=== PATIENT | female | born 1990 | race African-American/Black ===

== ENCOUNTER 2017-05-04 17:51 | Emergency (ER) | payer MEDICAID ==
[~2017-05-04] VITALS: Ht 165.1 cm; Wt 99.3 kg
[2017-05-04 18:06] VITALS: BP_SYST 132
[2017-05-04 19:06] LABS: BILIRUBIN,URINE NEGATIVE (NEGATIVE); BLOOD, URINE 3+ (NEGATIVE); CLARITY/URINE HAZY (CLEAR); COLOR,URINE YELLOW (YELLOW); GLUCOSE,URINE NEGATIVE (NEGATIVE); KETONES,URINE TRACE (NEGATIVE); LEUKOCYTE ESTERASE ,URINE NEGATIVE (NEGATIVE); NITRITE, URINE NEGATIVE (NEGATIVE); PH,URINE 6.5 (5.0-8.0); PROTEIN URINE TRACE (NEGATIVE); UROBILINOGEN,URINE 0.2 (0.2-1.0)
[2017-05-04 19:11] LABS: BACTERIA,URINE FEW /HPF (None Seen)
[2017-05-04 19:12] LABS: MUCUS,URINE 2+ /LPF (None Seen)
[2017-05-04] MEDS ORDERED: KETOROLAC TROMETHAMINE 60 MG/2 ML VIAL IM ONE (19:15)
[2017-05-04 20:45] VITALS: BP_SYST 130
== END 2017-05-04 20:45 | disposition home or self-care (01) ==
LOC: SED 17:51
DX: N76.0 Acute vaginitis (principal); N39.0 Urinary tract infection, site not specified
CPT/HCPCS: 81000; 81025; 87205; 87210; 87491; 87591; 96372; 99284; J1885

== ENCOUNTER 2018-08-05 18:20 | Emergency (ER) | payer MEDICAID ==
[~2018-08-05] VITALS: Ht 160 cm; Wt 104.3 kg
[2018-08-05 18:26] VITALS: BP_SYST 122
== END 2018-08-05 19:00 | disposition home or self-care (01) ==
LOC: SED 18:20
DX: B35.9 Dermatophytosis, unspecified (principal)
CPT/HCPCS: 99282

== ENCOUNTER 2018-08-16 20:06 | Emergency (ER) | payer MEDICAID ==
[~2018-08-16] VITALS: Ht 154.9 cm; Wt 104.3 kg
[2018-08-16 20:14] VITALS: BP_SYST 124
--- NOTE | 2018-08-16 20:17 | NUR ---
Patient to ER bed 08 to gown for evaluation. Side rails up.
--- NOTE | 2018-08-16 20:20 | NUR ---
Pt complains of having "ring worms" on bilateral upper and lower extremities, that burn and itch. Pt states she has had this for about 2 months. Pt was seen here and was given ointment, but they have not gone away. Pt denies N/V, or fever. No other injuries/complaints per patient or noted.
--- NOTE | 2018-08-16 20:30 | NUR ---
ER Dr. De La Paz at bedside examining patient.
[2018-08-16 20:45] VITALS: BP_SYST 122
--- NOTE | 2018-08-16 20:45 | NUR ---
Patient given written and verbal discharge instructions and verbalizes understanding. ER MD discussed with patient the results and treatment provided. Patient in stable condition. ID arm band removed. Rx of AUGMENTIN OINT given. Patient educated on pain management and to follow up with PMD. Pain Scale 0/10. Opportunity for questions provided and answered. Medication side effect fact sheet provided.
== END 2018-08-16 20:45 | disposition home or self-care (01) ==
LOC: SED 20:06
DX: L23.9 Allergic contact dermatitis, unspecified cause (principal); R03.0 Elevated blood-pressure reading, without diagnosis of hypertension
CPT/HCPCS: 99283

== ENCOUNTER 2018-11-16 16:11 | Emergency (ER) | payer MEDICAID ==
[~2018-11-16] VITALS: Ht 154.9 cm; Wt 103.9 kg
[2018-11-16 16:21] VITALS: BP_SYST 116
[2018-11-16 17:15] VITALS: BP_SYST 116
== END 2018-11-16 17:15 | disposition home or self-care (01) ==
LOC: SED 16:11
DX: N89.8 Other specified noninflammatory disorders of vagina (principal)
CPT/HCPCS: 99283

== ENCOUNTER 2019-05-07 16:03 | Emergency (ER) | payer MEDICAID ==
[~2019-05-07] VITALS: Ht 157.5 cm; Wt 100.7 kg
[2019-05-07 16:10] VITALS: BP_SYST 113
[2019-05-07 17:10] LABS: BASOPHILS % (AUTO) 0.4 % (0.0-2.0); EOSINOPHILS # (AUTO) 0.1 K/uL (0.0-0.4); EOSINOPHILS % (AUTO) 0.8 % (0.0-4.0); HEMATOCRIT 38.5 % (36-48); HEMOGLOBIN 12.9 g/dL (12.0-16.0); LYMPHOCYTES # (AUTO) 2.1 K/uL (1.0-5.5); LYMPHOCYTES % (AUTO) 25.1 % (20.5-51.5); MEAN CORPUSCULAR HEMOGLOBIN 32 pg (27-31); MEAN CORPUSCULAR HGB CONC 34 % (32-36); MEAN CORPUSCULAR VOLUME 96 fL (79.0-98.0); MONOCYTES # (AUTO) 0.6 K/uL (0.0-1.0); MONOCYTES % (AUTO) 6.7 % (1.7-9.3); NEUTROPHILS # (AUTO) 5.6 K/uL (1.8-7.7); PLATELET COUNT (AUTO) 214 K/uL (130-430); RED CELL DISTRIBUTION WIDTH 13.1 % (9.0-15.0); WHITE BLOOD COUNT (AUTO) 8.4 K/uL (4.8-10.8)
[2019-05-07 17:14] LABS: BILIRUBIN,URINE NEGATIVE (NEGATIVE); CLARITY/URINE SL HAZY (CLEAR); COLOR,URINE YELLOW (YELLOW); GLUCOSE,URINE NEGATIVE (NEGATIVE); KETONES,URINE NEGATIVE (NEGATIVE); LEUKOCYTE ESTERASE ,URINE NEGATIVE (NEGATIVE); NITRITE, URINE NEGATIVE (NEGATIVE); PROTEIN URINE NEGATIVE (NEGATIVE); UROBILINOGEN,URINE 0.2 (0.2-1.0)
[2019-05-07 17:16] LABS: BLOOD, URINE TRACE (NEGATIVE)
[2019-05-07 17:23] LABS: BACTERIA,URINE FEW /HPF (None Seen); MUCUS,URINE 1+ /LPF (None Seen); RBC,URINE 0-3 /HPF (0-3); WBC,URINE 0-3 /HPF (0-3)
[2019-05-07 17:53] LABS: CALCIUM 8.3 mg/dL (8.4-11.0); CREATININE 0.9 mg/dL (0.55-1.30); POTASSIUM 3.4 mmol/L (3.5-5.1)
[2019-05-07 18:35] VITALS: BP_SYST 113
== END 2019-05-07 18:35 | disposition home or self-care (01) ==
LOC: SED 16:03
DX: O26.891 Other specified pregnancy related conditions, first trimester (principal); R42 Dizziness and giddiness; R11.0 Nausea; Z3A.01 Less than 8 weeks gestation of pregnancy
CPT/HCPCS: 36415; 76801; 76817; 80048; 81000-TC; 81025; 84702-TC; 85025; 86900; 86901; 99284

== ENCOUNTER 2020-03-05 15:51 | Emergency (ER) | payer MEDICAID ==
[~2020-03-05] VITALS: Ht 157.5 cm; Wt 104.3 kg
[2020-03-05 16:05] VITALS: BP_SYST 128
--- NOTE | 2020-03-05 16:05 | NUR ---
PT TO WAIT IN ER LOBBY, NO ER BEDS AVAILABLE CURRENTLY.
--- NOTE | 2020-03-05 16:10 | NUR ---
PT AAO AND AMBULATORY C/O BURNING WITH URINATION AND ITCHING IN PELVIC AREA FOR THE PAST TWO DAYS. PT RECENTLY HAD BABY TWO MONTHS AGO. PT USED OTC MEDICATION WITHOUT IMPROVEMENT. PT REPORTS 2/10 PAIN SCALE.
--- NOTE | 2020-03-05 16:30 | NUR ---
Urine specimen collected and analyzed in ER. Results given to ER MD. test negative
--- NOTE | 2020-03-05 17:45 | NUR ---
Patient to ER bed 7 to gown for evaluation. Side rails up. Report given to CRISTIAN.
--- NOTE | 2020-03-05 18:00 | NUR ---
ER Dr. Cote at bedside examining patient.
--- NOTE | 2020-03-05 18:05 | NUR ---
JEANA TO ASSUME CARE, PT CALM, ALERT, RESP UNLABORED, SKIN WARM AND DRY. COMMUNICATES CLEARLY , NO DISTRESS
--- NOTE | 2020-03-05 18:20 | NUR ---
Pelvic exam performed by Dr. Cote with Fernanda OLIVERA at bedside for entire examination. Patient tolerated procedure well. Patient assisted to position of comfort after examination. Specimens obtained and sent to lab for testing.
--- NOTE | 2020-03-05 18:30 | NUR ---
Patient given written and verbal discharge instructions and verbalizes understanding. ER MD discussed with patient the results and treatment provided. Patient in stable condition. ID arm band removed. Rx of Flagyl and Diflucan given. Patient educated on pain management and to follow up with PMD. Pain Scale 0. Opportunity for questions provided and answered. Medication side effect fact sheet provided.
[2020-03-05 18:32] VITALS: BP_SYST 128
== END 2020-03-05 18:36 | disposition home or self-care (01) ==
LOC: SED 15:51
DX: B37.9 Candidiasis, unspecified (principal); N76.0 Acute vaginitis; B96.89 Other specified bacterial agents as the cause of diseases classified elsewhere; J45.909 Unspecified asthma, uncomplicated
CPT/HCPCS: 81002; 81025; 87070-TC; 87205-TC; 87210-TC; 99283

== ENCOUNTER 2020-03-22 11:05 | Emergency (ER) | payer MEDICAID ==
[~2020-03-22] VITALS: Ht 157.5 cm; Wt 99.8 kg
[2020-03-22 11:16] VITALS: BP_SYST 128
[2020-03-22 11:28] VITALS: BP_SYST 128
[2020-03-22] MEDS ORDERED: BACITRACIN 1 GM OINT TP ONE (11:38)
== END 2020-03-22 11:25 | disposition home or self-care (01) ==
LOC: SED 11:05
DX: L03.112 Cellulitis of left axilla (principal); J45.909 Unspecified asthma, uncomplicated
CPT/HCPCS: 99283

== ENCOUNTER 2022-03-22 17:59 | Emergency (ER) | payer MEDICAID ==
[~2022-03-22] VITALS: Ht 157.5 cm; Wt 97.1 kg
[2022-03-22 18:30] VITALS: BP_SYST 102
[2022-03-22 20:05] LABS: BILIRUBIN,URINE NEGATIVE (NEGATIVE); BLOOD, URINE NEGATIVE (NEGATIVE); CLARITY/URINE CLEAR (CLEAR); COLOR,URINE YELLOW (YELLOW); GLUCOSE,URINE NEGATIVE (NEGATIVE); KETONES,URINE NEGATIVE (NEGATIVE); LEUKOCYTE ESTERASE ,URINE NEGATIVE (NEGATIVE); NITRITE, URINE NEGATIVE (NEGATIVE); PROTEIN URINE NEGATIVE (NEGATIVE); UROBILINOGEN,URINE 0.2 (0.2-1.0)
[2022-03-22 20:11] VITALS: BP_SYST 102
[2022-03-22] MEDS ORDERED: DOXY100C5 PO (23:09)
== END 2022-03-22 20:10 | disposition left against medical advice (07) ==
LOC: SED 17:59
DX: R10.9 Unspecified abdominal pain (principal); Z53.21 Procedure and treatment not carried out due to patient leaving prior to being seen by health care provider
CPT/HCPCS: 81003; 81025

== ENCOUNTER 2022-03-22 21:51 | Emergency (ER) | payer MEDICAID ==
[~2022-03-22] VITALS: Ht 157.5 cm; Wt 97.1 kg
[2022-03-22 22:05] VITALS: BP_SYST 113
[2022-03-22] MEDS ORDERED: DOXY100C5 PO (23:09)
[2022-03-22] MEDS ORDERED: cefTRIAXone 500 MG in LIDOCAINE 1%, 20 ML MDV 1 ML IM ONE (23:15)
[2022-03-22] MEDS ORDERED: DOXYCYCLINE HYCLATE 100 MG CAPSULE PO ONE (23:15)
[2022-03-22 23:58] VITALS: BP_SYST 122
== END 2022-03-22 23:58 | disposition home or self-care (01) ==
LOC: SED 21:51
DX: R10.2 Pelvic and perineal pain (principal); Z11.3 Encounter for screening for infections with a predominantly sexual mode of transmission; Z79.899 Other long term (current) drug therapy
CPT/HCPCS: 99283; 36415; 81025; 96372; 87491; J0696

== ENCOUNTER 2022-05-10 14:23 | Emergency (ER) | payer MEDICAID ==
[~2022-05-10] VITALS: Ht 157.5 cm; Wt 90.7 kg
[~2022-05-10 14:23] MED LIST: DOXY100C5 PO
[2022-05-10 14:30] VITALS: BP_SYST 113
--- NOTE | 2022-05-10 14:30 | NUR ---
Patient triaged and placed in waiting room. VSS and patient appears in no acute distress at this time. Accompanied by SELF, awaiting available bed, and MD notified of need for MSE.
[2022-05-10 15:28] LABS: BILIRUBIN,URINE NEGATIVE (NEGATIVE); BLOOD, URINE 1+ (NEGATIVE); CLARITY/URINE CLEAR (CLEAR); COLOR,URINE YELLOW (YELLOW); GLUCOSE,URINE NEGATIVE (NEGATIVE); KETONES,URINE NEGATIVE (NEGATIVE); LEUKOCYTE ESTERASE ,URINE NEGATIVE (NEGATIVE); NITRITE, URINE NEGATIVE (NEGATIVE); PROTEIN URINE NEGATIVE (NEGATIVE); UROBILINOGEN,URINE 0.2 (0.2-1.0)
--- NOTE | 2022-05-10 15:29 | NUR ---
ER DR. CARDOSO EXAMINING PT
[2022-05-10 15:37] LABS: BACTERIA,URINE FEW /HPF (None Seen); MUCUS,URINE None Seen /LPF (None Seen); RBC,URINE 0-3 /HPF (0-3); WBC,URINE 0-3 /HPF (0-3)
[2022-05-10 16:17] LABS: BASOPHILS % (AUTO) 0.3 % (0.0-2.0); EOSINOPHILS # (AUTO) 0.1 K/uL (0.0-0.4); EOSINOPHILS % (AUTO) 1.1 % (0.0-4.0); HEMATOCRIT 40.1 % (36-48); LYMPHOCYTES # (AUTO) 2.1 K/uL (1.0-5.5); LYMPHOCYTES % (AUTO) 31.8 % (20.5-51.5); MEAN CORPUSCULAR VOLUME 93 fL (79.0-98.0); MONOCYTES # (AUTO) 0.6 K/uL (0.0-1.0); MONOCYTES % (AUTO) 8.8 % (1.7-9.3); NEUTROPHILS # (AUTO) 3.8 K/uL (1.8-7.7); PLATELET COUNT (AUTO) 222 K/uL (130-430); RED CELL DISTRIBUTION WIDTH 13.5 % (9.0-15.0); WHITE BLOOD COUNT (AUTO) 6.6 K/uL (4.8-10.8)
--- NOTE | 2022-05-10 16:55 | NUR ---
CALL TO PT IN LOBBY, NO ANSWER
[2022-05-10 17:00] VITALS: BP_SYST 113
--- NOTE | 2022-05-10 17:00 | NUR ---
PT ELOPED FROM [facility]
[2022-05-10 18:46] LABS: POTASSIUM 3.7 mmol/L (3.5-5.1)
[2022-05-10 18:47] LABS: CALCIUM 9.2 mg/dL (8.4-11.0); CREATININE 1.11 mg/dL (0.55-1.30); TOTAL BILIRUBIN 0.3 mg/dL (0.0-1.0)
[2022-05-10 18:48] LABS: ALBUMIN 3.7 g/dL (3.4-4.8)
== END 2022-05-10 17:00 | disposition left against medical advice (07) ==
LOC: SED 14:23
DX: R10.30 Lower abdominal pain, unspecified (principal); R11.0 Nausea; J45.909 Unspecified asthma, uncomplicated; Z79.899 Other long term (current) drug therapy
CPT/HCPCS: 36415; 80053; 81000; 81025; 84702; 85025; 99283

== ENCOUNTER 2022-12-09 19:48 | Emergency (ER) | payer MEDICAID ==
[~2022-12-09] VITALS: Ht 160 cm; Wt 103.4 kg
[2022-12-09 20:01] VITALS: BP_SYST 116
--- NOTE | 2022-12-09 20:20 | NUR ---
Patient triaged and placed in waiting room. VSS and patient appears in no acute distress at this time. Accompanied by SELF, awaiting available bed, and MD notified of need for MSE.
--- NOTE | 2022-12-09 22:30 | NUR ---
LEFT WITHOUT BEING SEEN DR Beau HERNÁNDEZ WENT IN THE WAITING ROOM AND PT IS NOT AROUND WENT AND RE CHECKED CALLED HER NAME 2X AND CHECKED OUTSIDE NO AVAIL.
== END 2022-12-09 22:30 | disposition left against medical advice (07) ==
LOC: SED 19:48
DX: J02.9 Acute pharyngitis, unspecified (principal); H57.89 Other specified disorders of eye and adnexa; Z53.21 Procedure and treatment not carried out due to patient leaving prior to being seen by health care provider
CPT/HCPCS: 99281